=== PATIENT | male | born 1995 | race African-American/Black ===

== ENCOUNTER 2019-03-06 07:12 | Emergency (ER) | payer BC ==
[2019-03-06 07:20] VITALS: BP 126/75; PULSE 60; TEMP 97.8; BMI 31.5
[2019-03-06] MEDS ORDERED: TETRACAINE 0.5% OPHTH SOLN 2 ML BOTTLE ONE (07:24)
[2019-03-06] MEDS ORDERED: FLUORESCEIN NA 1 EA STRIP ONE (07:24)
[2019-03-06] MEDS ORDERED: TETRACAINE 0.5% OPHTH SOLN 2 ML BOTTLE OD ONE (07:30)
[2019-03-06] MEDS ORDERED: FLUORESCEIN NA 1 EA STRIP OD ONE (07:30)
--- NOTE | 2019-03-06 07:36 | PDOC ---
History of Present Illness - General Chief Complaint: Eye Problem Stated Complaint: RIGHT EYE REDNESS Time Seen by Provider: 03/06/19 07:22 History Source: Patient Exam Limitations: No Limitations - History of Present Illness Initial Comments: 03/06/19 07:31 23-year-old male presents to ED with complaints of right eye irritation redness and tearing since yesterday. Patient denies any foreign body to area, irritation prior to onset, Contact use, or any new topicals used to the face around the eye. Patient denies any visual changes or headache but does complain of pain to the area. Timing/Duration: other Severity: mild Associated Symptoms: reports: denies symptoms Past History - Travel Traveled outside of the country in the last 30 days: No Close contact w/someone who was outside of country & ill: No - Past Medical History Allergies/Adverse Reactions: Allergies Allergy/AdvReac Type Severity Reaction Status Date / Time No Known Allergies Allergy Verified 03/06/19 07:20 Home Medications: Ambulatory Orders Cephalexin [Keflex] 500 mg PO BID #14 capsule 04/30/15 COPD: No - Immunization History Immunization Up to Date: Yes - Suicide/Smoking/Psychosocial Hx Smoking History: Never smoked Have you smoked in the past 12 months: No Hx Alcohol Use: No Drug/Substance Use Hx: No Substance Use Type: Marijuana Patient Lives Alone: No Lives with/in: parents Review of Systems - Review of Systems Able to Perform ROS?: No Is the patient limited Latvian proficient: No HEENTM: Yes: Eye Pain, Tearing Integumentary: No: Symptoms Reported Neurological: No: Symptoms reported *Physical Exam - Vital Signs Last Vital Signs Temp Pulse Resp BP Pulse Ox 97.8 F 60 18 126/75 99 03/06/19 07:18 03/06/19 07:18 03/06/19 07:18 03/06/19 07:18 03/06/19 07:18 - Physical Exam General Appearance: Yes: Nourished, Appropriately Dressed. No: Apparent Distress HEENT: positive: EOMI, EMMANUEL, Other (Noted erythema to the right sclera including excessive tearing and sticky beige-like substance to the lacrimal duct region. No visible foreign body. ) Integumentary: positive: Normal Color, Warm, Moist Neurologic: positive: Motor Strength 5/5 (ambulatory) Medical Decision Making - Medical Decision Making 03/06/19 07:34 Plan: Right eye irritation with redness and excessive tearing since yesterday Exam: Right eye excessive tearing redness to the sclera and conjunctiva Plan: Rule out corneal abrasion utilizing tetracaine and fluorescein strip which was negative. Patient be discharged home with erythromycin ointment for treatment of conjunctivitis *DC/Admit/Observation/Transfer Diagnosis at time of Disposition: Conjunctivitis - Discharge Dispostion Disposition: HOME Condition at time of disposition: Good - Referrals - Patient Instructions Printed Discharge Instructions: DI for Conjunctivitis Additional Instructions: Wash hands frequently and use medication as recommended for the next 5 days. Change linens daily and try not to rub the eye to avoid irritation - Post Discharge Activity
== END 2019-03-06 07:38 | disposition home or self-care (01) ==
LOC: JER 07:12
DX: H10.9 Unspecified conjunctivitis (principal)
CPT/HCPCS: 99281-25

== ENCOUNTER 2019-08-08 09:07 | Emergency (ER) | payer BC ==
--- NOTE | 2019-08-08 09:16 | PDOC ---
History of Present Illness - General Stated Complaint: R/O UTI Time Seen by Provider: 08/08/19 09:13 History Source: Patient - History of Present Illness Timing/Duration: other Past History - Past Medical History Allergies/Adverse Reactions: Allergies Allergy/AdvReac Type Severity Reaction Status Date / Time No Known Allergies Allergy Verified 08/08/19 09:16 Home Medications: Ambulatory Orders Erythromycin 0.5% Eye Ointment [Erythromycin 0.5% Eye Ointment -] 1 applic OP BID #1 tube 03/06/19 COPD: No - Immunization History Immunization Up to Date: Yes - Psycho Social/Smoking Cessation Hx Smoking History: Never smoked Have you smoked in the past 12 months: No Hx Alcohol Use: No Drug/Substance Use Hx: No Substance Use Type: Marijuana Review of Systems - Review of Systems Constitutional: No: Fever : No: Burning, Dysuria, Discharge, Frequency, Flank Pain, Hematuria, Testicular Mass, Testicular Swelling, Lesions, Testicular Pain *Physical Exam - Physical Exam General Appearance: Yes: Appropriately Dressed. No: Apparent Distress HEENT: positive: Normal Voice Neck: positive: Supple Respiratory/Chest: negative: Respiratory Distress Gastrointestinal/Abdominal: positive: Soft. negative: Tender Integumentary: positive: Dry, Warm Neurologic: positive: Fully Oriented, Alert, Normal Mood/Affect Medical Decision Making - Medical Decision Making 08/08/19 09:13 23-year-old male, no significant history here to have my urine checked. Patient 's girlfriend currently a patient in the ED with complaint of UTI symptoms. Patient states he wants his urine checked as well, though reasons unclear. I informed patient that a UTI is not a sexually transmitted disease, that because of the female anatomy, that women are more prone to UTIs but patient still insisting on getting his urine checked. Has no dysuria, penile discharge, testicular pain, swelling, nausea, vomiting, fever or chills. Exam wnl. UA neg. Discharged Discharge - Discharge Information Problems reviewed: Yes Clinical Impression/Diagnosis: Evaluation by medical service required Condition: Good Disposition: HOME - Follow up/Referral - Patient Discharge Instructions Additional Instructions: Your urine showed no signs of infection. - Post Discharge Activity
[2019-08-08 09:21] VITALS: BP 127/82; PULSE 58; TEMP 98; BMI 30.2
[2019-08-08 10:17] LABS: EPI CELLS 1.2 /HPF (0-5/HPF); HYALINE CASTS 6 /lpf (0-8); PH,URINE 6.5 (5.0-8.0); URINE APPEARANCE CLEAR; URINE BACTERIA 8.9 /hpf (NEGATIVE); URINE BILIRUBIN NEGATIVE (NEGATIVE); URINE COLOR YELLOW; URINE GLUCOSE (UA) NEGATIVE (NEGATIVE); URINE KETONE NEGATIVE (NEGATIVE); URINE LEUK ESTERASE 1+ (NEGATIVE); URINE NITRITE NEGATIVE (NEGATIVE); URINE PROTEIN NEGATIVE (NEGATIVE); URINE RBC 2 /hpf (0-4); URINE WBC 18 /hpf (0-5)
== END 2019-08-08 11:08 | disposition home or self-care (01) ==
LOC: JERFT 09:07
DX: Z00.00 Encounter for general adult medical examination without abnormal findings (principal)
CPT/HCPCS: 81003; 99281-25

== ENCOUNTER 2019-08-11 21:15 | Emergency (ER) | payer BC ==
[2019-08-11 21:25] VITALS: BP 120/50; PULSE 82; TEMP 98.4; BMI 31.1
[2019-08-11] MEDS ORDERED: AZITHROMYCIN 500 MG TABLET PO ONE (23:44)
--- NOTE | 2019-08-11 23:48 | PDOC ---
Documentation entered by Juan Jose Mccabe SCRIBE, acting as scribe for Whitney Houston MD. Whitney Houston MD: This documentation has been prepared by the Eliot valera Nirvannie, SCRIBE, under my direction and personally reviewed by me in its entirety. I confirm that the documentation accurately reflects all work, treatment, procedures, and medical decision making performed by me. History of Present Illness - General Chief Complaint: Urinary Problem Stated Complaint: ABDOMINAL PAIN History Source: Patient Exam Limitations: No Limitations - History of Present Illness Initial Comments: 08/11/19 23:53 The patient is a 23 year old male, with a significant past medical history of UTIs and Chlamydia (>3 years ago and treated), who presents to the emergency department with 1 week of a bubbling sensation when urinating and increased premature ejaculation during sexual intercourse. As per patient, he has a new female sexual partner for the past month. He notes being evaluated in the ED 3 days ago for evaluation for a UTI after partner was being evaluated for UTI symptoms. He denies any testicular pain or penile discharge. He denies any recent dysuria , frequency, urgency or hematuria. He denies any recent fevers, chills, headache or dizziness. He denies any recent nausea, vomit, diarrhea or constipation. He denies any recent chest pain or shortness of breath. Allergies: NKDA Social History: Marijuana smoking. Past History - Past Medical History Allergies/Adverse Reactions: Allergies Allergy/AdvReac Type Severity Reaction Status Date / Time No Known Allergies Allergy Verified 08/12/19 00:06 Home Medications: Ambulatory Orders NK [No Known Home Medication] 08/12/19 COPD: No - Immunization History Immunization Up to Date: Yes - Psycho Social/Smoking Cessation Hx Smoking History: Never smoked Have you smoked in the past 12 months: No Hx Alcohol Use: No Drug/Substance Use Hx: Yes (marijuana) Substance Use Type: Marijuana Review of Systems - Review of Systems Able to Perform ROS?: Yes Comments:: 08/11/19 23:53 GENERAL/CONSTITUTIONAL: No fever or chills. No weakness. HEAD, EYES, EARS, NOSE AND THROAT: No change in vision. No ear pain or discharge. No sore throat. CARDIOVASCULAR: No chest pain or shortness of breath. RESPIRATORY: No cough, wheezing, or hemoptysis. GASTROINTESTINAL: No nausea, vomiting, diarrhea or constipation. GENITOURINARY: +Bubbling sensation when urinating. +Premature ejaculation. No dysuria, frequency, or change in urination. MUSCULOSKELETAL: No joint or muscle swelling or pain. No neck or back pain. SKIN: No rash NEUROLOGIC: No headache, vertigo, loss of consciousness, or change in strength/ sensation. ENDOCRINE: No increased thirst. No abnormal weight change. HEMATOLOGIC/LYMPHATIC: No anemia, easy bleeding, or history of blood clots. ALLERGIC/IMMUNOLOGIC: No hives or skin allergy. All Other Systems: Reviewed and Negative *Physical Exam - Vital Signs Last Vital Signs Temp Pulse Resp BP Pulse Ox 98.4 F 82 19 120/50 L 96 08/11/19 21:22 08/11/19 21:22 08/11/19 21:22 08/11/19 21:22 08/11/19 21:22 - Physical Exam 08/11/19 23:46 awake alert lungs clear bilat heart rrr no mrg abd soft nt nd ext wwp. no penile lesions. no testicular massess or tendernes. no palp hernia. Medical Decision Making - Medical Decision Making 08/11/19 23:47 23-year-old male history of prior UTIs here today for repeat visit complaining of a abnormal urinary sensation states he feels like there is bubbles in his urine. Patient does have a new sexual partner since the last 1 month he was seen in the ED 3 days ago had a UA which was equivocal at that time states he would be like to be tested for STDs including gonorrhea chlamydia HIV and syphilis. Would also like to be prophylactically treated for chlamydia and gonorrhea we will repeat a UA today as the urine 3 days ago was equivocal we will also test for gonorrhea and chlamydia syphilis and HIV patient will be given ceftriaxone and azithromycin prophylactically Discharge - Discharge Information Problems reviewed: Yes Clinical Impression/Diagnosis: Dysuria, Urethritis Condition: Improved Disposition: HOME - Admission No - Follow up/Referral Referrals: Balaji Jackson MD [Staff Physician] - CallBack Reminder: call back gc chlamydia - Patient Discharge Instructions Patient Printed Discharge Instructions: Urethritis Additional Instructions: you were treated for any STD todya you will receive a call if any of the tests were abnormal. your urine is negative for any infection you should follow up with a urologist for any difficulty or concerns with your urination. see referral information for Dr Sue, call to schedule to be seen. - Post Discharge Activity
[2019-08-12 00:10] LABS: URINE APPEARANCE CLOUDY; URINE BILIRUBIN NEGATIVE (NEGATIVE); URINE COLOR YELLOW; URINE GLUCOSE (UA) NEGATIVE (NEGATIVE); URINE KETONE NEGATIVE (NEGATIVE); URINE LEUK ESTERASE NEGATIVE (NEGATIVE); URINE NITRITE NEGATIVE (NEGATIVE); URINE PROTEIN NEGATIVE (NEGATIVE)
[2019-08-12] MEDS ORDERED: LIDOCAINE HCL 1%, 10 MG/ML (20ML VIAL) ONE (00:55)
[2019-08-12] MEDS ORDERED: AZITHROMYCIN 250 MG TABLET ONE (00:55)
[2019-08-12] MEDS ORDERED: cefTRIAXone SODIUM 1 GM VIAL ONE (00:56)
== END 2019-08-12 01:46 | disposition home or self-care (01) ==
LOC: JERFT 21:15 → JER 21:15
DX: R30.0 Dysuria (principal); N34.2 Other urethritis
CPT/HCPCS: 36415; 81003; 86593; 87086; 87389; 87491; 87591; 99281-25

== ENCOUNTER 2023-08-09 18:05 | Emergency (ER) | payer SELFPAY ==
[2023-08-09 18:40] VITALS: BP 127/69; PULSE 66; RESP 18; TEMP 98.3; BMI 27.2
[2023-08-09] MEDS ORDERED: DIPHTH,PERTUSS(ACELL),TET 0.5 ML DISP.SYRIN IM ONE ×2 (19:06→19:30)
[2023-08-09] MEDS ORDERED: ACETAMINOPHEN 500 MG TABLET (FP) PO ONE (19:06)
[2023-08-09] MEDS ORDERED: ACETAMINOPHEN 500 MG TABLET (FP) ONE (19:30)
== END 2023-08-09 20:27 | disposition home or self-care (01) ==
LOC: JER 18:05 → JERFT 18:05
PROC: 0HQGXZZ Repair Left Hand Skin, External Approach (ICD-10-PCS; principal; 2023-08-09)
PROC: 3E0234Z Introduction of Serum, Toxoid and Vaccine into Muscle, Percutaneous Approach (ICD-10-PCS; 2023-08-09)
DX: S61.012A Laceration without foreign body of left thumb without damage to nail, initial encounter (principal); W26.8XXA Contact with other sharp object(s), not elsewhere classified, initial encounter
CPT/HCPCS: 73140-TC-LT-FY; 90715; 99283-25